=== PATIENT | male | born 1940 | race Caucasian/White ===

== ENCOUNTER 2019-01-26 08:04 | Observation (INO) ==
--- NOTE | 2019-01-26 12:35 | Internal Med History&Physical ---
Date of Encounter: 01/26/19 Time of Encounter: 12:35 Internal Medicine - H&P: HPI History of present illness: Mr. Ocampo is a 78 year old male with history of COPD on 3L O2 at home, CAD, CVA, atrial fibrillation, PE on Xarelto, liver disease, Pacer/AICD presents as a transfer from [place] ED for shortness of breath and elevated troponin. Patient was watching TV at 9 pm last night during onset of symptoms. He felt anxiety mostly during this time. Dyspnea worsens with exertion. He denies chest pain, n/v, diaphoresis, palpitations. En route to [place] he was given Solu-Medrol and Duo Nebs. In ED he was found to have troponin 0.04, creatinine slightly above baseline at 1.5, BNP 292. EKG showed a paced rhythm with no t- wave abnormalities or ST elevations or depressions. He was given 0.5 mg IV Ativan which was reported to improve his symptoms. Past Med Surg Social Fam HX - Past Medical History Medical history: arthritis, atrial fibrillation, CHF, COPD, coronary artery disease, CVA, GERD, hyperlipidemia, hypertension, liver disease Additional medical history: Stroke-April 2018 Psychiatric history: no psych history - Past Surgical History Surgical History: orthopedic, other, pacemaker/AICD Additional surgical history: Left Arm Surgery, Right Thumb Surgery - Social History Smoking Status: Former smoker Smokeless Tobacco Status: No Alcohol use: none Drug use: none - Family History Mother Living Status: Hx Family Cancer: Yes Brother Living Status: Internal Medicine - H&P: Meds Atorvastatin [Lipitor] 40 mg PO HS 10/25/16 [History] Ipratropium/Albuterol Neb [Duoneb] 3 ml IH Q6HR PRN 10/25/16 [History] Potassium Chloride [Klor-Con Sprinkle] 20 meq PO DAILY 10/25/16 [History] Esomeprazole Magnesium [Nexium] 40 mg PO DAILY 01/09/17 [History] Lisinopril [Zestril] 10 mg PO DAILY 01/09/17 [History] Metoprolol XL (24 HR) Succ [Toprol Xl] 50 mg PO DAILY 01/09/17 [History] Montelukast [Singulair] 10 mg PO HS 06/12/18 [History] Buspirone HCl [Buspar] 5 mg PO BID 01/26/19 [History] Furosemide [Lasix] 40 mg PO DAILY 01/26/19 [History] Guaifenesin [Mucinex] 600 mg PO DAILY PRN 01/26/19 [History] Mirtazapine [Remeron] 15 mg PO HS 01/26/19 [History] Rivaroxaban [Xarelto] 20 mg PO DAILY 01/26/19 [History] Sennosides [Senna] 8.6 mg PO HS 01/26/19 [History] hydrOXYzine HCl [Hydroxyzine HCl] 25 mg PO QID PRN 01/26/19 [History] Allergy/AdvReac Type Severity Reaction Status Date / Time cephalexin [From Keflex] Allergy Difficulty Verified 01/26/19 04:57 Breathing All Systems PM: A 10-system review of systems was performed and is negative for pertinent findings except as documented above in the HPI. - Constitutional Vitals: Temp Pulse Resp BP Pulse Ox 97.8 F 69 18 102/64 98 01/26/19 12:31 01/26/19 12:31 01/26/19 12:31 01/26/19 12:31 01/26/19 12:31 General appearance: Present: A&O X 3, no acute distress Exam: . - Head Head exam: Present: atraumatic, normocephalic - Eye Eye exam: Present: PERRL, conjuntiva pink, sclera anicteric Pupils: Present: PERRL - Neck Neck exam general surgery: Present: supple, trachea midline. Absent: lymphadenopathy - Respiratory Respiratory exam: Present: decreased breath sounds. Absent: accessory muscle use, rales, rhonchi, wheezes Additional comments: very poor air exchange with faint exchange. - Cardiovascular Cardiovascular exam: Present: RRR, +S1, +S2. Absent: diastolic murmur, gallop, rubs, systolic murmur - GI/Abdominal GI/Abdominal exam: Present: normal bowel sounds, soft, no peritoneal signs. Absent: distended, tenderness - Extremities Exam Extremities exam: Present: warm, radial pulses palpable and symmetrical. Absent: calf tenderness, cyanotic, pedal edema - Neurological Exam Neurological exam: Present: CN II-XII intact, oriented X3, no focal deficits. Absent: pronater drift, facial droop, speech deficit - Skin Skin exam: Present: dry, intact - Assessment and Plan (1) Elevated troponin Current Visit: No Status: Acute Assessment and plan: Could be secondary to demand ischemia from COPD exacerbation. Cycle troponin, echocardiogram, CT chest. (2) COPD exacerbation Current Visit: No Status: Chronic Assessment and plan: Likely to be triggered by change in weather as noted it could be related to this. Does not appear to be infectious but will monitor for signs of infection. Received Solu Medrol and Duo Nebs en route to [place] Continue Duo Nebs Solu Medrol CT chest (3) History of pulmonary embolism Current Visit: Yes Status: Acute Assessment and plan: Continue Xarelto. (4) Coronary artery disease Current Visit: Yes Status: Acute Assessment and plan: Resume home medications. Qualifiers: Coronary Disease-Associated Artery/Lesion type: [place] artery [place] vs. transplanted heart: [place] heart Associated angina: without angina Qualified Code(s): I25.10 - Atherosclerotic heart disease of [place] coronary artery without angina pectoris (5) History of CVA (cerebrovascular accident) Current Visit: Yes Status: Acute Assessment and plan: Resume home medications. (6) GERD (gastroesophageal reflux disease) Current Visit: Yes Status: Acute Qualifiers: Esophagitis presence: esophagitis presence not specified Qualified Code(s): K21.9 - Gastro-esophageal reflux disease without esophagitis (7) CHF (congestive heart failure) Current Visit: No Status: Chronic Assessment and plan: Resume home medications. Qualifiers: Heart failure type: unspecified Heart failure chronicity: acute on chronic Qualified Code(s): I50.9 - Heart failure, unspecified (8) Essential hypertension Current Visit: No Status: Chronic (9) Pacemaker Current Visit: No Status: Chronic - Time Spent With Patient Total time spent is greater than 50% in coordination of care (as documented) at patient's floor/unit and/or counseling patient:
[2019-01-26] MEDS ORDERED: Nitroglycerin 0.4 MG TAB.SUBL SL PRN (12:37)
[2019-01-26] MEDS ORDERED: Naloxone 0.4 MG/ML INJ IVP PRN (12:38)
[2019-01-26] MEDS: Ipratropium/Albuterol Neb 3 ML IH SCH ×3 (15:21→20:06)
[2019-01-26 15:30] LABS: Adenovirus Not Detected (Not Detect); Bordetella Pertussis Not Detected (Not Detect); Chlamydophila pneumoniae Not Detected (Not Detect); Coronavirus 229E Not Detected (Not Detect); Coronavirus HKU1 Not Detected (Not Detect); Coronavirus NL63 Not Detected (Not Detect); Coronavirus OC43 Not Detected (Not Detect); Human Metapneumovirus Not Detected (Not Detect); Human Rhinovirus/Enterovirus Not Detected (Not Detect); Influenza A Subtype 2009 H1 Not Detected (Not Detect); Influenza A Untypeable Not Detected (Not Detect); Influenza B Not Detected (Not Detect); Mycoplasma pneumoniae Not Detected (Not Detect); Parainfluenza Virus 1 Not Detected (Not Detect); Parainfluenza Virus 2 Not Detected (Not Detect); Parainfluenza Virus 3 Not Detected (Not Detect); Parainfluenza Virus 4 Not Detected (Not Detect); Respiratory Syncytial Virus Not Detected (Not Detect)
[2019-01-26] MEDS: MethylPREDNISolone 40 MG/ML VIAL IVP SCH (17:02)
[2019-01-26] MEDS: Doxycycline 100 MG in 0.9 % Sodium Chloride Mini Bag 100 ML IVPB SCH (17:02)
[2019-01-26] MEDS ORDERED: *HR* LORazepam 2 MG/ML VIAL IVP ONE (19:33)
[2019-01-27] MEDS: Sennosides 8.6 MG TABLET PO SCH ×2 (00:24→20:31)
[2019-01-27] MEDS: MethylPREDNISolone 40 MG/ML VIAL IVP SCH ×3 (00:24→16:09)
[2019-01-27] MEDS: *HR* Rivaroxaban 10 MG TABLET PO SCH ×2 (00:25→08:20)
[2019-01-27] MEDS ORDERED: *HR* Rivaroxaban 10 MG TABLET PO SCH (00:30)
[2019-01-27] MEDS: Ipratropium/Albuterol Neb 3 ML IH SCH ×5 (00:39→15:43)
[2019-01-27] MEDS: Doxycycline 100 MG in 0.9 % Sodium Chloride Mini Bag 100 ML IVPB SCH ×2 (05:07→17:06)
[2019-01-27 07:15] LABS: Hematocrit 33.8 % (37.5-50.1); Hemoglobin 10.3 g/dL (12.9-16.9); Lymphocytes # 0.1 K/mcL (0.6-4.6); Lymphocytes % 2.7 %; Mean Corpuscular HGB Conc 30.5 g/dL (31.6-35.5); Mean Corpuscular Hemoglobin 29.5 pg (28.0-33.3); Mean Corpuscular Volume 96.8 fL (83.0-100.0); Mean Platelet Volume 9.3 fL (9.4-12.4); Monocytes # 0.1 K/mcL (0.0-1.3); Neutrophils # 4.8 K/mcL (1.6-8.9); Platelet Count 125 K/mcL (140-400); Red Blood Count 3.49 M/mcL (4.19-5.50); Red Cell Distribution Width 14.6 % (11.5-14.5); Segmented Neutrophils % 94.3 %; White Blood Count 5.1 K/mcL (4.3-11.1)
[2019-01-27 07:57] LABS: BUN/Creatinine Ratio 21 (6-26); Blood Urea Nitrogen 28 mg/dL (8-23); Calcium 9.3 mg/dL (8.6-10.3); Carbon Dioxide 29 mEq/L (23-29); Chloride 104 mEq/L (98-107); Glucose 152 mg/dL (70-105); Osmolality,Calculated 298 (280-300); Potassium 4.7 mEq/L (3.5-5.1); Sodium 140 mEq/L (136-145); eGFR For African Americans > 60 (> 60); eGFR For Non-African Americans 52 (> 60)
[2019-01-27] MEDS: Metoprolol XL (24 HR) Succ 50 MG TAB.ER.24H PO SCH (08:20)
[2019-01-27] MEDS ORDERED: Ipratropium/Albuterol Neb 3 ML IH PRN (09:01)
[2019-01-27] MEDS ORDERED: hydrOXYzine pamoate 25 MG CAPSULE PO ONE (16:12)
[2019-01-27] MEDS ORDERED: hydrOXYzine pamoate 25 MG CAPSULE PO PRN (16:16)
--- NOTE | 2019-01-27 16:20 | Internal Med Progress Note ---
Hospitalist Progress Note - Encounter Date of Encounter: 01/27/19 Time of Encounter: 11:30 - Subjective Interval History: Mr Ocampo is complaining of increased tremulousness and agitation which initially reported as being anxious, complaining of bilateral hand tremors. He told his nurse in the past that benzodiazepine has not worked for him, and that his atarax is not working GEN: Denies fever, chills or malaise HEENT: Denies headache blurriness, or dysphagia RESP: Reports improved SOB or cough CV: Denies chest pain or palpitations GI: Denies Nausea, vomiting, diarrhea or constipation Reviewed current in hospital medications with modifications see orders Reviewed Routine labs - Exam Vitals: Temp Pulse Resp BP Pulse Ox 97.5 F L 70 16 110/68 98 01/27/19 16:13 01/27/19 16:13 01/27/19 16:13 01/27/19 16:13 01/27/19 16:13 Exam: GEN: NAD, somewhat cachectic looking, A&O x 3, Pleasant and conversant, daughter and son-in-law at his bedside HEENT: Right eye amblyopia noted, bilateral proptosis noted SKIN: [place] warm acyanotic not jaundice HEART: RRR, no murmurs LUNGS: Diminished mild wheeze and scattered crackles, overall non labored ABDOMEN; Soft, non tender or distended, BS x 4 normactive EXT: No LE edema, Pedal pulses 1+, radial pulses 2+ PSYCH: Mood and affect is appropriate - Assessment and Plan (1) COPD exacerbation Current Visit: No Status: Chronic Assessment and Plan: CT chest does reveal significant emphysema. Patient is complaining of tremulousness and agitation in the setting of high-dose steroid therapy and albuterol. Discussed with patient and his family does not benzodiazepine is noted ideal option for him. He stated Atarax is not working, was switched to Vistaril which is more lipophilic. Would also switch his albuterol to levalbuterol will de-escalate steroids from IV Solu-Medrol to prednisone orally starting tomorrow (2) Abnormal CT of the chest Current Visit: Yes Status: Acute Assessment and Plan: Patient will need if outpatient repeat CT scan chest in 6 months (3) Acute kidney injury (nontraumatic) Current Visit: Yes Status: Acute Assessment and Plan: Serum creatinine is 1.3. Today baseline not known, will hold Lasix and lisinopril and encourage oral intake (4) History of atrial fibrillation Current Visit: Yes Status: Acute Assessment and Plan: Metoprolol and Xarelto. Not evident on exam, history of Pacemaker Placement. Patient also appears an exam to have proptosis light and check a TSH (5) CHF (congestive heart failure) Current Visit: No Status: Chronic Assessment and Plan: Echo revealed 70% EF, patient is not volume overloaded. This is likely not CHF exacerbation [place] COPD. Is +0.6 L (6) Essential hypertension Current Visit: No Status: Chronic Assessment and Plan: Normotensive continue current management (7) Pacemaker Current Visit: No Status: Chronic Assessment and Plan: We will request interrogation pacemaker tomorrow (8) Elevated troponin Current Visit: No Status: Acute Assessment and Plan: Likely demand ischemia, denies any chest pain and diaphoretic, troponin is above the reference range mildly, echocardiogram was unremarkable (9) History of pulmonary embolism Current Visit: Yes Status: Acute Assessment and Plan: on Xarelto. (10) Coronary artery disease Current Visit: Yes Status: Acute Assessment and Plan: On beta anisha, atorvastatin (11) GERD (gastroesophageal reflux disease) Current Visit: Yes Status: Acute Assessment and Plan: Continue omeprazole DVT Prophylaxis: Already on xarelto - Time Spent with Patient Total time spent is greater than 50% in coordination of care (as documented) at patient's floor/unit and/or counseling patient: Internal Medicine: Result - Labs CBC & Chem 7: 01/27/19 06:22 01/27/19 06:22 Labs: Short CBC 01/27/19 Range/Units 06:22 WBC 5.1 (4.3-11.1) K/mcL Hgb 10.3 L (12.9-16.9) g/dL Hct 33.8 L (37.5-50.1) % Plt Count 125 L (140-400) K/mcL Neutrophils # 4.8 (1.6-8.9) K/mcL BMP 01/27/19 06:22 Sodium 140 Potassium 4.7 Chloride 104 Carbon Dioxide 29 BUN 28 H Creatinine 1.34 H Glucose 152 H Calcium 9.3 Consult Discharge Plan - Plan Referrals: Alison Huston, FIELD MECH[employer]IC [Primary Care Provider] - (5) CHF (congestive heart failure) Qualifiers: Heart failure type: unspecified Heart failure chronicity: acute on chronic Qualified Code(s): I50.9 - Heart failure, unspecified (10) Coronary artery disease Qualifiers: Coronary Disease-Associated Artery/Lesion type: [place] artery [place] vs. transplanted heart: [place] heart Associated angina: without angina Qualified Code(s): I25.10 - Atherosclerotic heart disease of [place] coronary artery without angina pectoris (11) GERD (gastroesophageal reflux disease) Qualifiers: Esophagitis presence: esophagitis presence not specified Qualified Code(s): K21.9 - Gastro-esophageal reflux disease without esophagitis
[2019-01-27] MEDS ORDERED: Mirtazapine 15 MG TABLET PO SCH (21:00)
[2019-01-27] MEDS: Levalbuterol Neb 1.25 MG/3 ML IH SCH (21:30)
[2019-01-27] MEDS: Ipratropium Neb 0.5 MG NEBULIZER IH SCH (21:30)
[2019-01-28 04:47] LABS: Hematocrit 33.4 % (37.5-50.1); Hemoglobin 10.3 g/dL (12.9-16.9); Immature Granulocytes % 1.5 % (0-4); Lymphocytes # 0.2 K/mcL (0.6-4.6); Lymphocytes % 2.7 %; Mean Corpuscular HGB Conc 30.8 g/dL (31.6-35.5); Mean Corpuscular Hemoglobin 28.9 pg (28.0-33.3); Mean Corpuscular Volume 93.6 fL (83.0-100.0); Mean Platelet Volume 8.9 fL (9.4-12.4); Monocytes # 0.3 K/mcL (0.0-1.3); Monocytes % 4.5 %; Neutrophils # 6.7 K/mcL (1.6-8.9); Platelet Count 131 K/mcL (140-400); Red Blood Count 3.57 M/mcL (4.19-5.50); Red Cell Distribution Width 14.4 % (11.5-14.5); Segmented Neutrophils % 91.3 %; White Blood Count 7.4 K/mcL (4.3-11.1)
[2019-01-28] MEDS: Ipratropium Neb 0.5 MG NEBULIZER IH SCH ×3 (04:47→15:25)
[2019-01-28] MEDS: Levalbuterol Neb 1.25 MG/3 ML IH SCH ×3 (04:47→15:25)
[2019-01-28 05:05] LABS: BUN/Creatinine Ratio 27 (6-26); Blood Urea Nitrogen 32 mg/dL (8-23); Calcium 9.3 mg/dL (8.6-10.3); Carbon Dioxide 29 mEq/L (23-29); Chloride 103 mEq/L (98-107); Glucose 113 mg/dL (70-105); Osmolality,Calculated 298 (280-300); Potassium 4.2 mEq/L (3.5-5.1); Sodium 140 mEq/L (136-145); eGFR For African Americans > 60 (> 60); eGFR For Non-African Americans 59 (> 60)
[2019-01-28] MEDS: Doxycycline 100 MG in 0.9 % Sodium Chloride Mini Bag 100 ML IVPB SCH (05:43)
[2019-01-28 07:24] VITALS: BP 129/78
[2019-01-28] MEDS: Metoprolol XL (24 HR) Succ 50 MG TAB.ER.24H PO SCH (07:58)
[2019-01-28] MEDS: *HR* Rivaroxaban 10 MG TABLET PO SCH (07:59)
[2019-01-28] MEDS ORDERED: NON-FORMULARY MEDICATION 1 EACH EACH (Pantoprazole Sodium 40 MG) PO SCH (09:00)
[2019-01-28] MEDS ORDERED: predniSONE 20 MG TABLET PO SCH (09:00)
--- NOTE | 2019-01-28 10:49 | Discharge Summary ---
- NOTES TO OUTPATIENT PROVIDER Notes to Outpatient Provider: Post hospital discharge for COPD exacerbation, abnormal CT of the chest with follow-up CT of the chest scan in 6 months. Proptosis noted on exam TSH is low range of normal, patient 78 years old would expect a TSH as such outpatient follow-up for possible hyperthyroidism Orders not resulted at time of discharge: Pending orders 01/26/19 12:35 EKG [ECG 12 lead ECG] [ECG] Stat 01/29/19 04:00 Complete Blood Count [HEME] AM 0400 Magnesium AM 0400 Date of Encounter: 01/28/19 Time of Encounter: 10:47 - Discharge Diagnosis (1) COPD exacerbation Priority: Primary Status: Chronic Assessment and Plan: Improved sent home on long prednisone taper over 2 weeks, nebulizer budesonide, Xopenex and ipratropium CT chest does reveal significant emphysema. Patient is complaining of tremulousness and agitation in the setting of high-dose steroid therapy and albuterol. Discussed with patient and his family does not benzodiazepine is noted ideal option for him. He stated Atarax is not working, was switched to Vistaril which is more lipophilic. Would also switch his albuterol to levalbu terol will de-escalate steroids from IV Solu-Medrol to prednisone orally starting tomorrow (2) Abnormal CT of the chest Priority: Secondary Status: Acute Assessment and Plan: Patient will need if outpatient repeat CT scan chest in 6 months (3) Acute kidney injury (nontraumatic) Priority: Secondary Status: Acute Assessment and Plan: Serum creatinine is 1.3. Today baseline not known, will hold Lasix and lisinopril and encourage oral intake. Resolved; Scr 1.2 (4) History of atrial fibrillation Priority: Secondary Status: Acute Assessment and Plan: Metoprolol and Xarelto. Not evident on exam, history of Pacemaker Placement. Patient also appears an exam to have proptosis TSH 0.637 (5) CHF (congestive heart failure) Priority: Secondary Status: Chronic Assessment and Plan: Echo revealed 70% EF, patient is not volume overloaded. This is likely not CHF exacerbation [place] advance COPD. Is +0.6 L Qualifiers: Heart failure type: unspecified Heart failure chronicity: acute on chronic Qualified Code(s): I50.9 - Heart failure, unspecified (6) Essential hypertension Priority: Secondary Status: Chronic Assessment and Plan: Normotensive continue current management (7) Pacemaker Priority: Secondary Status: Chronic Assessment and Plan: may need interrogation pacemaker as out patient (8) Elevated troponin Priority: Secondary Status: Acute Assessment and Plan: Likely demand ischemia, denies any chest pain and diaphoretic, troponin is above the reference range mildly, echocardiogram was unremarkable (9) History of pulmonary embolism Priority: Secondary Status: Acute Assessment and Plan: on Xarelto. (10) Coronary artery disease Priority: Secondary Status: Acute Assessment and Plan: On beta anisha, atorvastatin Qualifiers: Coronary Disease-Associated Artery/Lesion type: [place] artery [place] vs. transplanted heart: [place] heart Associated angina: without angina Qualified Code(s): I25.10 - Atherosclerotic heart disease of [place] coronary artery without angina pectoris (11) GERD (gastroesophageal reflux disease) Priority: Secondary Status: Acute Assessment and Plan: Continue omeprazole Qualifiers: Esophagitis presence: esophagitis presence not specified Qualified Code(s): K21.9 - Gastro-esophageal reflux disease without esophagitis Hospital course: Mr. Ocampo is a 78 year old male was hospitalized for COPD exacerbation almost workup was a CT of the chest which revealed some abnormalities with concerns of malignancy is such a repeat CT of the chest is required in 6 months. Patient appears to have agitation and tremulousness from his beta adrenergic stimulation hence albuterol nebulizers been discontinued he has been switched to levalbuterol, budesonide nebulizer as well as a long prednisone taper. He stated that he has a home health aide that comes once a week but he is able to perform his ADLs and medications without any difficulties Discharge discussed with: patient, family, nurse - Time Spent with Patient Total time spent providing and/or coordinating discharge services:40 mins Specific discharge activities: Please use your nebulizer treatment as discussed and make sure to follow-up with her primary care physician within 7 days - Discharge Medications Prescriptions: New Atorvastatin [Lipitor] 40 mg PO HS #30 tablet predniSONE [PredniSONE] See Taper PO DAILY 20 Days #30 tablet Budesonide Neb [Pulmicort Neb] 0.5 mg IH BIDR #60 ampul.neb hydrOXYzine pamoate [Vistaril] 25 mg PO TID PRN 14 Days #30 capsule PRN Reason: Tremulousness, agitation Levalbuterol Neb [Xopenex Neb] 1.25 mg IH [id number] #60 vial.neb Continued Metoprolol XL (24 HR) Succ [Toprol Xl] 50 mg PO DAILY Pantoprazole Sodium 40 mg PO DAILY Umeclidinium [place] [Incruse Ellipta] 1 puff PO DAILY Budesonide/Formoterol 160/4.5 [Symbicort 160/4.5] 2 puff IH BID Albuterol Sulfate [Ventolin Hfa] 2 puff IH Q6H PRN PRN Reason: Shortness Of Breath Buspirone HCl [Buspar] 5 mg PO BID #60 tablet Lisinopril [Zestril] 10 mg PO DAILY #30 tablet Montelukast [Singulair] 10 mg PO HS Mirtazapine [Remeron] 15 mg PO HS Sennosides [Senna] 8.6 mg PO HS Rivaroxaban [Xarelto] 20 mg PO DAILY Discontinued Atorvastatin [Lipitor] 40 mg PO HS Ipratropium/Albuterol Neb [Duoneb] 3 ml IH Q6HR PRN PRN Reason: Wheezing hydrOXYzine HCl [Hydroxyzine HCl] 25 mg PO QID PRN PRN Reason: Anxiety Guaifenesin [Mucinex] 600 mg PO BID PRN PRN Reason: Congestion No Action Furosemide [Lasix] 40 mg PO DAILY Potassium Chloride [K-Tab ER] 20 meq PO DAILY Home Medications: Metoprolol XL (24 HR) Succ [Toprol Xl] 50 mg PO DAILY 01/09/17 [History] Montelukast [Singulair] 10 mg PO HS 06/12/18 [History] Mirtazapine [Remeron] 15 mg PO HS 01/26/19 [History] Rivaroxaban [Xarelto] 20 mg PO DAILY 01/26/19 [History] Sennosides [Senna] 8.6 mg PO HS 01/26/19 [History] Albuterol Sulfate [Ventolin Hfa] 2 puff IH Q6H PRN 01/27/19 [History] Budesonide/Formoterol 160/4.5 [Symbicort 160/4.5] 2 puff IH BID 01/27/19 [History] Furosemide [Lasix] 40 mg PO DAILY 01/27/19 [History] Pantoprazole Sodium 40 mg PO DAILY 01/27/19 [History] Potassium Chloride [K-Tab ER] 20 meq PO DAILY 01/27/19 [History] Umeclidinium [place] [Incruse Ellipta] 1 puff PO DAILY 01/27/19 [History] Atorvastatin [Lipitor] 40 mg PO HS #30 tablet 01/28/19 [Rx] Budesonide Neb [Pulmicort Neb] 0.5 mg IH BIDR #60 ampul.neb 01/28/19 [Rx] Buspirone HCl [Buspar] 5 mg PO BID #60 tablet 01/28/19 [Rx] Levalbuterol Neb [Xopenex Neb] 1.25 mg IH [id number] #60 vial.neb 01/28/19 [Rx] Lisinopril [Zestril] 10 mg PO DAILY #30 tablet 01/28/19 [Rx] hydrOXYzine pamoate [Vistaril] 25 mg PO TID PRN 14 Days #30 capsule 01/28/19 [Rx] predniSONE [PredniSONE] See Taper PO DAILY 20 Days #30 tablet 01/28/19 [Rx] Allergies/Adverse Reactions: Allergy/AdvReac Type Severity Reaction Status Date / Time cephalexin [From Keflex] Allergy Difficulty Verified 01/26/19 04:57 Breathing Date of admission: 01/26/19 11:38 Primary care physician: Alison Huston [employer] Discharging clinician: Alexsandra Cabrera - Constitutional Vitals: Temp Pulse Resp BP Pulse Ox 97.8 F 69 32 129/78 94 01/28/19 07:23 01/28/19 07:23 01/28/19 09:26 01/28/19 07:23 01/28/19 09:26 General appearance: Present: A&O X 3, no acute distress Exam: GENERAL: NAD, A&O x3, pleasant and conversant SKIN: No skin lesions or rashes, non-jaundiced EYES: EOMI, PERRLA, no sclera icterus, right eye amblyopia and bilateral proptosis noted HENT: Head atraumatic, no facial asymmetry, frontal and maxillary sinus non- tender, normal hearing, oropharynx and mucosa moist and without any exudates NECK: No cervical lymphadenopathy, trachea midline LUNGS: Diminished but appears clear to auscultation, no wheeze, or rhonchi, but few scattered crackles. Non labored respirations HEART: Normal rate and rhythm, no murmurs or rubs ABDOMEN: soft, non-tender, non-distended, bowel sounds x 4 normoactive EXTRMITIES: No LE asymmetry, No LE edema, pedal pulses 1+ and radial pulses 2 + and equal bilaterally NEURO: Speech and comprehension appears intact. PSYCH: Cooperative, non- anxious or irritable, mood and affect is appropriate - Patient Status Disposition: Home, Self-Care Condition: Fair - Discharge Instructions Follow Up With: Alison Huston CNP [Primary Care Provider] - - Diet and Activity Activity: resume usual activities as tolerated Diet: low fat, low cholesterol, low salt diet
== END 2019-01-28 15:44 | disposition home or self-care (01) ==
LOC: 3BNU
PROVIDERS: ADMIT Student in an Organized Health Care Education/Training Program; ATTEND Student in an Organized Health Care Education/Training Program

== ENCOUNTER 2019-06-04 19:33 | Inpatient (IN) ==
[2019-06-05 03:41] LABS: Hematocrit 29.3 % (37.5-50.1); Hemoglobin 8.5 g/dL (12.9-16.9); Mean Corpuscular Hemoglobin 24.1 pg (28.0-33.3); Mean Corpuscular Volume 83.2 fL (83.0-100.0); Mean Platelet Volume 8.5 fL (9.4-12.4); Platelet Count 211 K/mcL (140-400); Red Blood Count 3.52 M/mcL (4.19-5.50); Red Cell Distribution Width 16.9 % (11.5-14.5); White Blood Count 8.4 K/mcL (4.3-11.1)
[2019-06-05 04:02] LABS: Alanine Aminotransferase 16 Units/L (7-52); Albumin 3.3 g/dL (3.5-5.7); Albumin/Globulin Ratio 1.1 (1.1-2.2); Alkaline Phosphatase 62 Units/L (34-104); Aspartate Amino Transferase 15 Units/L (13-39); BUN/Creatinine Ratio 20 (6-26); Bilirubin,Total 0.4 mg/dL (0.3-1.0); Blood Urea Nitrogen 25 mg/dL (8-23); Calcium 8.8 mg/dL (8.6-10.3); Carbon Dioxide 29 mEq/L (23-29); Chloride 107 mEq/L (98-107); Globulin 2.9 g/dL (2.4-3.5); Glucose 77 mg/dL (70-105); Osmolality,Calculated 299 (280-300); Potassium 4.5 mEq/L (3.5-5.1); Sodium 143 mEq/L (136-145); Total Protein 6.2 g/dL (6.4-8.9); eGFR For African Americans > 60 (> 60); eGFR For Non-African Americans 54 (> 60)
[2019-06-05] MEDS ORDERED: Naloxone 0.4 MG/ML INJ IVP PRN (04:23)
[2019-06-05 04:35] LABS: Troponin I 0.08 ng/mL (< 0.04)
[2019-06-05] MEDS ORDERED: Dextrose Gel 15 GM/37.5 ML TUBE PO PRN ×2 (08:10)
[2019-06-05] MEDS ORDERED: D5% in Water 1,000 ML IVC PRN (08:10)
[2019-06-05] MEDS ORDERED: *HR* Dextrose 50 % in Water (Syg) 50 ML SYRINGE IVP PRN (08:10)
[2019-06-05] MEDS: Pantoprazole 40 MG VIAL IVP SCH ×2 (08:51→17:42)
[2019-06-05] MEDS: Metoprolol XL (24 HR) Succ 50 MG TAB.ER.24H PO SCH (08:51)
[2019-06-05] MEDS: Budesonide/Formoterol 160/4.5 1 PUFF INH IH SCH ×2 (10:59→21:32)
[2019-06-05] MEDS: Levalbuterol Neb 1.25 MG/3 ML IH SCH ×3 (10:59→21:32)
[2019-06-05] MEDS: Insulin LISPRO 300 UNITS/3 ML VIAL SQ SCH ×2 (12:08→17:40)
[2019-06-05 13:33] LABS: Hematocrit 31.7 % (37.5-50.1); Hemoglobin 9.2 g/dL (12.9-16.9)
[2019-06-05] MEDS ORDERED: Perflutren Lipid Microsphere 1.3 ML in 0.9 % Sodium Chloride 8.7 ML IVP ONE (13:47)
[2019-06-05] MEDS ORDERED: Perflutren Lipid Microsphere 2 ML VIAL ONE (13:50)
[2019-06-05] MEDS ORDERED: Heparin 25,000 UNIT/250 ML D5W 25,000 UNIT/250 ML IV.SOLN IVC SCH (17:15)
[2019-06-05] MEDS ORDERED: *HR* Heparin 5,000 UNIT/ML VIAL IVP PRN ×2 (18:48)
[2019-06-05] MEDS: hydrOXYzine pamoate 25 MG CAPSULE PO PRN (20:01)
[2019-06-05] MEDS: Mirtazapine 15 MG TABLET PO SCH (20:04)
[2019-06-06 00:42] LABS: Basophils % 0.2 %; Eosinophils # 0.1 K/mcL (0.0-0.6); Eosinophils % 1.2 %; Hematocrit 27.5 % (37.5-50.1); Hemoglobin 8.2 g/dL (12.9-16.9); Immature Granulocytes % 0.8 % (0-4); Lymphocytes # 0.4 K/mcL (0.6-4.6); Lymphocytes % 6.9 %; Mean Corpuscular HGB Conc 29.8 g/dL (31.6-35.5); Mean Corpuscular Volume 80.6 fL (83.0-100.0); Mean Platelet Volume 8.2 fL (9.4-12.4); Monocytes # 0.3 K/mcL (0.0-1.3); Monocytes % 5.1 %; Neutrophils # 5.2 K/mcL (1.6-8.9); Platelet Count 184 K/mcL (140-400); Red Blood Count 3.41 M/mcL (4.19-5.50); Segmented Neutrophils % 85.8 %; White Blood Count 6.1 K/mcL (4.3-11.1)
[2019-06-06 00:44] LABS: Heparin anti-factor XA UFH 0.54 IU/mL (0.30-0.70); INR 1.2
[2019-06-06 00:46] LABS: Calcium 8.3 mg/dL (8.6-10.3); Magnesium 1.9 mg/dL (1.6-2.6); Phosphorous 3.3 mg/dL (2.7-4.5)
[2019-06-06] MEDS: Insulin LISPRO 300 UNITS/3 ML VIAL SQ SCH ×5 (02:25→23:17)
[2019-06-06] MEDS: Levalbuterol Neb 1.25 MG/3 ML IH SCH ×4 (04:10→22:16)
[2019-06-06] MEDS: Pantoprazole 40 MG VIAL IVP SCH ×2 (06:22→18:17)
[2019-06-06] MEDS ORDERED: Ringers Solution, Lactated 1,000 ML IVC SCH (07:45)
[2019-06-06 07:56] LABS: Hematocrit 26.4 % (37.5-50.1); Hemoglobin 8.1 g/dL (12.9-16.9)
[2019-06-06 08:06] LABS: Heparin anti-factor XA UFH 0.77 IU/mL (0.30-0.70)
[2019-06-06] MEDS ORDERED: Heparin 25,000 UNIT/250 ML D5W 25,000 UNIT/250 ML IV.SOLN IVC SCH (08:38)
[2019-06-06 08:52] LABS: Activated Partial Thrombo Time 98.3 Seconds (26.0-36.0)
[2019-06-06] MEDS: Metoprolol XL (24 HR) Succ 50 MG TAB.ER.24H PO SCH (10:27)
[2019-06-06] MEDS: predniSONE 20 MG TABLET PO SCH (10:28)
[2019-06-06] MEDS: Budesonide/Formoterol 160/4.5 1 PUFF INH IH SCH (10:34)
[2019-06-06] MEDS: hydrOXYzine pamoate 25 MG CAPSULE PO PRN (10:56)
[2019-06-06 13:38] LABS: Hematocrit 26.6 % (37.5-50.1)
[2019-06-06] MEDS ORDERED: hydrOXYzine pamoate 25 MG CAPSULE PO PRN (16:54)
[2019-06-06] MEDS ORDERED: SODIUM CHLORIDE/NAHCO3/KCL/PEG 4,000 ML SOLN.RECON PO ONE (17:00)
[2019-06-06 20:29] LABS: Hematocrit 30.2 % (37.5-50.1); Hemoglobin 9.1 g/dL (12.9-16.9)
[2019-06-06] MEDS ORDERED: Sennosides 8.6 MG TABLET PO SCH (21:00)
[2019-06-06] MEDS: Mirtazapine 15 MG TABLET PO SCH (21:01)
[2019-06-06] MEDS: Nystatin Ointment 15 GM TUBE TP SCH (21:07)
[2019-06-07] MEDS: Insulin LISPRO 300 UNITS/3 ML VIAL SQ SCH ×2 (04:03→14:01)
[2019-06-07] MEDS: Levalbuterol Neb 1.25 MG/3 ML IH SCH ×3 (04:24→15:04)
[2019-06-07] MEDS: Pantoprazole 40 MG VIAL IVP SCH (04:46)
[2019-06-07 05:23] LABS: Immature Granulocytes % 0.7 % (0-4); Segmented Neutrophils % 86.9 %
[2019-06-07 05:25] LABS: Eosinophils # 0.1 K/mcL (0.0-0.6); Hematocrit 29.8 % (37.5-50.1); Hemoglobin 8.9 g/dL (12.9-16.9); Lymphocytes # 0.4 K/mcL (0.6-4.6); Lymphocytes % 6.2 %; Mean Corpuscular HGB Conc 29.9 g/dL (31.6-35.5); Mean Corpuscular Hemoglobin 24.2 pg (28.0-33.3); Mean Platelet Volume 9.7 fL (9.4-12.4); Monocytes # 0.3 K/mcL (0.0-1.3); Monocytes % 5.2 %; Platelet Count 209 K/mcL (140-400); Red Blood Count 3.68 M/mcL (4.19-5.50); White Blood Count 5.8 K/mcL (4.3-11.1)
[2019-06-07 05:44] LABS: BUN/Creatinine Ratio 15 (6-26); Blood Urea Nitrogen 18 mg/dL (8-23); Calcium 8.8 mg/dL (8.6-10.3); Carbon Dioxide 26 mEq/L (23-29); Chloride 101 mEq/L (98-107); Glucose 76 mg/dL (70-105); Magnesium 2.1 mg/dL (1.6-2.6); Osmolality,Calculated 287 (280-300); Phosphorous 3.6 mg/dL (2.7-4.5); Potassium 3.3 mEq/L (3.5-5.1); Sodium 138 mEq/L (136-145); eGFR For African Americans > 60 (> 60); eGFR For Non-African Americans 59 (> 60)
[2019-06-07] MEDS: Nystatin Ointment 15 GM TUBE TP SCH (08:40)
[2019-06-07] MEDS: predniSONE 20 MG TABLET PO SCH (08:41)
[2019-06-07] MEDS: Metoprolol XL (24 HR) Succ 50 MG TAB.ER.24H PO SCH (08:51)
[2019-06-07] MEDS ORDERED: (Fluticasone/Umeclidin/Vilanter [Trelegy Ellipta 100-62.5-25) IH SCH (10:00)
[2019-06-07] MEDS ORDERED: Lidocaine -MPF 2% 2 ML VIAL ONE (12:42)
[2019-06-07] MEDS ORDERED: Propofol 500 MG/50 ML INFUS..BTL ONE (12:43)
[2019-06-07 14:13] VITALS: BP 137/91
[2019-06-07] MEDS ORDERED: *HR* Rivaroxaban 10 MG TABLET PO SCH (14:15)
[2019-06-08] MEDS ORDERED: Tiotropium 18 MCG inhalation IH SCH (07:00)
== END 2019-06-07 16:00 | disposition home health service (06) | DRG 378 ==
LOC: 3ANU → SUATTDRO 21:55
PROVIDERS: ADMIT Internal Medicine; ATTEND Internal Medicine
PROC: ENDOEBX (2019-06-07 08:45)

== ENCOUNTER 2020-04-14 14:18 | Inpatient (IN) ==
[2020-04-14] MEDS ORDERED: Ipratropium/Albuterol Neb 3 ML IH ONE (18:07)
[2020-04-14] MEDS ORDERED: methylPREDNISolone 125 MG/2 ML VIAL IVP ONE (18:10)
[2020-04-14] MEDS ORDERED: Ipratropium/Albuterol Neb 3 ML ONE (18:18)
[2020-04-14] MEDS ORDERED: *HR* LORazepam 2 MG/ML VIAL IVP ONE (18:21)
[2020-04-14] MEDS ORDERED: methylPREDNISolone 125 MG/2 ML VIAL ONE (18:23)
[2020-04-14] MEDS ORDERED: *HR* LORazepam 2 MG/ML VIAL ONE (18:23)
[2020-04-14 18:28] LABS: ABG Base Excess 0 mEq/L (-2 to 3); ABG HCO3 25 mEq/L (21-27); ABG Oxygen Saturation 97 % (95-98); ABG PCO2 38 mmHg (35-45); ABG PH 7.42 pH Units (7.32-7.45); ABG PO2 87 mmHg (85-104); ABG TCO2 26 mEq/L (20-26)
[2020-04-14 18:29] LABS: Adenovirus Not Detected (Not Detect); Bordetella Pertussis Not Detected (Not Detect); Chlamydophila pneumoniae Not Detected (Not Detect); Coronavirus 229E Not Detected (Not Detect); Coronavirus HKU1 Not Detected (Not Detect); Coronavirus NL63 Not Detected (Not Detect); Coronavirus OC43 Not Detected (Not Detect); Human Metapneumovirus Not Detected (Not Detect); Human Rhinovirus/Enterovirus Not Detected (Not Detect); Influenza A Subtype 2009 H1 Not Detected (Not Detect); Influenza B Not Detected (Not Detect); Mycoplasma pneumoniae Not Detected (Not Detect); Parainfluenza Virus 1 Not Detected (Not Detect); Parainfluenza Virus 2 Not Detected (Not Detect); Parainfluenza Virus 3 Not Detected (Not Detect); Parainfluenza Virus 4 Not Detected (Not Detect); Respiratory Syncytial Virus Not Detected (Not Detect); SARS-CoV-2 Not Detected (Not Detect)
[2020-04-14] MEDS: Azithromycin 500 MG in 0.9 % Sodium Chloride 250 ML IVPB SCH (21:49)
[2020-04-14] MEDS ORDERED: Ipratropium/Albuterol Neb 3 ML IH SCH (23:00)
[2020-04-14] MEDS: MethylPREDNISolone 40 MG/ML VIAL IVP SCH (23:52)
[2020-04-15] MEDS: Pantoprazole 40 MG VIAL IVP SCH ×3 (00:29→18:27)
[2020-04-15] MEDS ORDERED: 0.9 % Sodium Chloride 250 ML ONE (00:43)
[2020-04-15] MEDS ORDERED: Levalbuterol Neb 1.25 MG/3 ML IH PRN (01:50)
[2020-04-15] MEDS ORDERED: Perflutren Lipid Microsphere 1.3 ML in 0.9 % Sodium Chloride 8.7 ML IVP PRN (04:36)
[2020-04-15] MEDS: MethylPREDNISolone 40 MG/ML VIAL IVP SCH ×2 (05:03→18:27)
[2020-04-15 06:13] LABS: Hematocrit 25.8 % (37.5-50.1); Hemoglobin 7.6 g/dL (12.9-16.9); Immature Granulocytes % 1.1 % (0-4); Lymphocytes # 0.2 K/mcL (0.6-4.6); Lymphocytes % 3.6 %; Mean Corpuscular HGB Conc 29.5 g/dL (31.6-35.5); Mean Corpuscular Hemoglobin 24.4 pg (28.0-33.3); Mean Platelet Volume 9.2 fL (9.4-12.4); Monocytes % 0.6 %; Platelet Count 150 K/mcL (140-400); Red Blood Count 3.11 M/mcL (4.19-5.50); Red Cell Distribution Width 17.5 % (11.5-14.5); Segmented Neutrophils % 94.7 %; White Blood Count 5.2 K/mcL (4.3-11.1)
[2020-04-15 06:22] LABS: Neutrophils # 4.9 K/mcL (1.6-8.9)
[2020-04-15 06:35] LABS: Alanine Aminotransferase 9 Units/L (7-52); Albumin/Globulin Ratio 1.5 (1.1-2.2); Alkaline Phosphatase 57 Units/L (34-104); Aspartate Amino Transferase 12 Units/L (13-39); BUN/Creatinine Ratio 18 (6-26); Bilirubin,Total 0.5 mg/dL (0.3-1.0); Blood Urea Nitrogen 22 mg/dL (8-23); Calcium 9.4 mg/dL (8.6-10.3); Carbon Dioxide 25 mEq/L (23-29); Chloride 107 mEq/L (98-107); Globulin 2.7 g/dL (2.4-3.5); Glucose 126 mg/dL (70-105); Osmolality,Calculated 299 (280-300); Potassium 4.7 mEq/L (3.5-5.1); Sodium 142 mEq/L (136-145); Total Protein 6.7 g/dL (6.4-8.9); eGFR For African Americans > 60 (> 60); eGFR For Non-African Americans 58 (> 60)
[2020-04-15 06:37] LABS: % Iron Saturation 5 % (20-55); Iron 21 mcg/dL (65-175); Transferrin 307 mg/dL (203-362)
[2020-04-15 06:49] LABS: Ferritin 24 ng/mL (20-250)
[2020-04-15 06:53] LABS: Anisocytosis 1+ (Not Present); Hypochromasia Present (Not Present); Ovalocytes 1+ (Not Present)
[2020-04-15 06:54] LABS: Platelet Estimate Normal (Normal)
[2020-04-15 06:55] LABS: Folate 7.6 ng/mL (3.0-16.0)
[2020-04-15] MEDS: amLODIPine 5 MG TABLET PO SCH (08:48)
[2020-04-15] MEDS: Furosemide 40 MG TABLET PO SCH (08:49)
[2020-04-15] MEDS: lisinopriL 10 MG TABLET PO SCH (08:49)
[2020-04-15] MEDS: Metoprolol XL (24 HR) Succ 50 MG TAB.ER.24H PO SCH (08:49)
[2020-04-15 10:00] LABS: INR 1.6; Prothrombin Time 18.1 Seconds (9.4-12.1)
[2020-04-15] MEDS: Ipratropium/Albuterol Neb 3 ML IH SCH ×4 (11:30→23:52)
[2020-04-15] MEDS: Budesonide/Formoterol 160/4.5 1 PUFF INH IH SCH ×2 (11:33→19:58)
[2020-04-15 13:13] LABS: Bilirubin,Urine Negative (Negative); Blood,Urine Negative (Negative); Clarity,Urine Clear (Clear); Color,Urine Colorless (Yellow); Glucose,Urine (UA) Normal (Normal); Ketones,Urine Negative (Negative); Leukocyte Esterase,Urine Negative (Negative); Nitrite,Urine Negative (Negative); Protein,Urine Negative (Neg-Trace); Specific Gravity,Urine 1.007 (1.010-1.025); Urobilinogen,Urine Normal (Normal)
[2020-04-15 14:48] LABS: Hematocrit 25.6 % (37.5-50.1); Hemoglobin 7.6 g/dL (12.9-16.9)
[2020-04-15] MEDS: Mirtazapine 15 MG TABLET PO SCH (20:20)
[2020-04-15] MEDS: Azithromycin 500 MG in 0.9 % Sodium Chloride 250 ML IVPB SCH (20:21)
[2020-04-15] MEDS: hydrOXYzine pamoate 25 MG CAPSULE PO PRN (23:07)
[2020-04-16] MEDS ORDERED: *HR* LORazepam 2 MG/ML VIAL IVP ONE (03:17)
[2020-04-16] MEDS: Ipratropium/Albuterol Neb 3 ML IH SCH ×6 (03:39→23:17)
[2020-04-16] MEDS: Pantoprazole 40 MG VIAL IVP SCH (05:30)
[2020-04-16] MEDS: MethylPREDNISolone 40 MG/ML VIAL IVP SCH ×2 (05:30→18:55)
[2020-04-16 06:13] LABS: Hematocrit 25.9 % (37.5-50.1); Hemoglobin 7.6 g/dL (12.9-16.9); Immature Granulocytes % 0.7 % (0-4); Lymphocytes # 0.2 K/mcL (0.6-4.6); Lymphocytes % 2.7 %; Mean Corpuscular HGB Conc 29.3 g/dL (31.6-35.5); Mean Corpuscular Volume 81.7 fL (83.0-100.0); Mean Platelet Volume 9.5 fL (9.4-12.4); Monocytes # 0.2 K/mcL (0.0-1.3); Monocytes % 2.7 %; Platelet Count 143 K/mcL (140-400); Red Blood Count 3.17 M/mcL (4.19-5.50); Red Cell Distribution Width 18.1 % (11.5-14.5); Segmented Neutrophils % 93.9 %; White Blood Count 5.5 K/mcL (4.3-11.1)
[2020-04-16 06:15] LABS: Neutrophils # 5.2 K/mcL (1.6-8.9)
[2020-04-16 06:19] LABS: INR 1.3; Prothrombin Time 14.6 Seconds (9.4-12.1)
[2020-04-16 06:39] LABS: BUN/Creatinine Ratio 27 (6-26); Blood Urea Nitrogen 34 mg/dL (8-23); Calcium 9.1 mg/dL (8.6-10.3); Carbon Dioxide 24 mEq/L (23-29); Chloride 106 mEq/L (98-107); Glucose 103 mg/dL (70-105); Magnesium 2.4 mg/dL (1.6-2.6); Osmolality,Calculated 296 (280-300); Potassium 4.2 mEq/L (3.5-5.1); Sodium 139 mEq/L (136-145); eGFR For African Americans > 60 (> 60); eGFR For Non-African Americans 55 (> 60)
[2020-04-16] MEDS: Budesonide/Formoterol 160/4.5 1 PUFF INH IH SCH ×2 (07:27→19:50)
[2020-04-16] MEDS: Metoprolol XL (24 HR) Succ 50 MG TAB.ER.24H PO SCH (08:57)
[2020-04-16] MEDS: lisinopriL 10 MG TABLET PO SCH (08:57)
[2020-04-16] MEDS: Furosemide 40 MG TABLET PO SCH (08:57)
[2020-04-16] MEDS: amLODIPine 5 MG TABLET PO SCH (08:57)
[2020-04-16] MEDS: Pantoprazole 40 MG in 0.9 % Sodium Chloride Mini Bag 100 ML IVC SCH ×3 (12:22→23:47)
[2020-04-16 15:51] LABS: Thyroid Stimulating Hormone 0.503 mcIU/mL (0.340-5.600)
[2020-04-16] MEDS: Mirtazapine 15 MG TABLET PO SCH (20:39)
[2020-04-16] MEDS: hydrOXYzine pamoate 25 MG CAPSULE PO PRN (20:39)
[2020-04-16] MEDS: Azithromycin 500 MG in 0.9 % Sodium Chloride 250 ML IVPB SCH (20:39)
[2020-04-17] MEDS: Ipratropium/Albuterol Neb 3 ML IH SCH ×6 (03:44→23:45)
[2020-04-17] MEDS: Pantoprazole 40 MG in 0.9 % Sodium Chloride Mini Bag 100 ML IVC SCH ×4 (04:48→15:38)
[2020-04-17] MEDS: MethylPREDNISolone 40 MG/ML VIAL IVP SCH (04:49)
[2020-04-17] MEDS: Budesonide/Formoterol 160/4.5 1 PUFF INH IH SCH ×2 (07:25→20:45)
[2020-04-17] MEDS: Furosemide 40 MG TABLET PO SCH (09:05)
[2020-04-17] MEDS: amLODIPine 5 MG TABLET PO SCH (09:05)
[2020-04-17] MEDS: lisinopriL 10 MG TABLET PO SCH (09:06)
[2020-04-17] MEDS: Metoprolol XL (24 HR) Succ 50 MG TAB.ER.24H PO SCH (09:06)
[2020-04-17 10:00] LABS: Calcium 8.9 mg/dL (8.6-10.3); Magnesium 2.3 mg/dL (1.6-2.6); Potassium 4.3 mEq/L (3.5-5.1)
[2020-04-17 10:02] LABS: INR 1.2; Prothrombin Time 14.3 Seconds (9.4-12.1)
[2020-04-17 10:05] LABS: Chol/HDL Ratio 2.1 (0-4.9)
[2020-04-17 10:11] LABS: Hematocrit 26.2 % (37.5-50.1); Hemoglobin 7.7 g/dL (12.9-16.9); Immature Granulocytes % 0.6 % (0-4); Lymphocytes # 0.1 K/mcL (0.6-4.6); Lymphocytes % 2.3 %; Mean Corpuscular HGB Conc 29.4 g/dL (31.6-35.5); Mean Corpuscular Hemoglobin 23.8 pg (28.0-33.3); Mean Corpuscular Volume 81.1 fL (83.0-100.0); Mean Platelet Volume 9.7 fL (9.4-12.4); Monocytes # 0.1 K/mcL (0.0-1.3); Monocytes % 1.5 %; Neutrophils # 4.5 K/mcL (1.6-8.9); Platelet Count 149 K/mcL (140-400); Red Blood Count 3.23 M/mcL (4.19-5.50); Red Cell Distribution Width 18.4 % (11.5-14.5); Segmented Neutrophils % 95.6 %; White Blood Count 4.7 K/mcL (4.3-11.1)
[2020-04-17 10:44] LABS: Anisocytosis 1+ (Not Present); Platelet Estimate Normal (Normal)
[2020-04-17 10:59] LABS: Estimated Average Glucose 114 mg/dl
[2020-04-17] MEDS ORDERED: 0.9 % Sodium Chloride 500 ML IVC SCH (12:15)
[2020-04-17] MEDS: Mirtazapine 15 MG TABLET PO SCH (22:38)
[2020-04-17] MEDS: Pantoprazole 40 MG VIAL IVP SCH (22:39)
[2020-04-17] MEDS: Azithromycin 500 MG in 0.9 % Sodium Chloride 250 ML IVPB SCH (22:39)
[2020-04-18 02:26] LABS: Hematocrit 24.9 % (37.5-50.1); Hemoglobin 7.4 g/dL (12.9-16.9); Immature Granulocytes % 0.4 % (0-4); Lymphocytes # 0.2 K/mcL (0.6-4.6); Mean Corpuscular HGB Conc 29.7 g/dL (31.6-35.5); Mean Corpuscular Hemoglobin 24.6 pg (28.0-33.3); Mean Corpuscular Volume 82.7 fL (83.0-100.0); Mean Platelet Volume 8.9 fL (9.4-12.4); Monocytes # 0.3 K/mcL (0.0-1.3); Monocytes % 7.1 %; Neutrophils # 4.2 K/mcL (1.6-8.9); Platelet Count 115 K/mcL (140-400); Red Blood Count 3.01 M/mcL (4.19-5.50); Red Cell Distribution Width 18.4 % (11.5-14.5); Segmented Neutrophils % 87.5 %; White Blood Count 4.8 K/mcL (4.3-11.1)
[2020-04-18 02:42] LABS: Calcium 8.4 mg/dL (8.6-10.3)
[2020-04-18] MEDS: Ipratropium/Albuterol Neb 3 ML IH SCH ×4 (04:30→15:54)
[2020-04-18] MEDS: MethylPREDNISolone 40 MG/ML VIAL IVP SCH ×2 (05:16→07:34)
[2020-04-18] MEDS: Pantoprazole 40 MG VIAL IVP SCH (05:16)
[2020-04-18] MEDS ORDERED: 0.9 % Sodium Chloride 250 ML IVC ONE (07:35)
[2020-04-18] MEDS: Budesonide/Formoterol 160/4.5 1 PUFF INH IH SCH (07:53)
[2020-04-18] MEDS: amLODIPine 5 MG TABLET PO SCH (10:40)
[2020-04-18] MEDS: Metoprolol XL (24 HR) Succ 50 MG TAB.ER.24H PO SCH (10:40)
[2020-04-18 14:10] VITALS: BP 130/61
== END 2020-04-18 16:20 | disposition other institution (70) | DRG 190 ==
LOC: CDU → SUATTDRO 16:16 → 2ANU 18:41
PROVIDERS: ADMIT Internal Medicine; ATTEND Internal Medicine
PROC: ENDOEBX (2020-04-17 08:00)

== ENCOUNTER 2020-05-03 00:26 | Inpatient (IN) ==
[2020-05-03] MEDS ORDERED: Naloxone 0.4 MG/ML INJ IVP PRN (03:18)
[2020-05-03] MEDS ORDERED: *HR* Heparin 5,000 UNIT/ML VIAL IVP PRN ×2 (03:54)
[2020-05-03] MEDS ORDERED: *HR* Heparin 5,000 UNIT/ML VIAL IVP ONE (03:54)
[2020-05-03 04:34] LABS: Hematocrit 29.4 % (37.5-50.1); Hemoglobin 8.7 g/dL (12.9-16.9); Mean Corpuscular HGB Conc 29.6 g/dL (31.6-35.5); Mean Corpuscular Hemoglobin 24.8 pg (28.0-33.3); Mean Corpuscular Volume 83.8 fL (83.0-100.0); Mean Platelet Volume 8.7 fL (9.4-12.4); Platelet Count 125 K/mcL (140-400); Red Blood Count 3.51 M/mcL (4.19-5.50); Red Cell Distribution Width 21.5 % (11.5-14.5); White Blood Count 5.2 K/mcL (4.3-11.1)
[2020-05-03 04:38] LABS: Heparin anti-factor XA UFH 0.09 IU/mL (0.30-0.70); INR 1.4; Prothrombin Time 15.6 Seconds (9.4-12.1)
[2020-05-03] MEDS: Heparin 25,000UNIT/250ML 1/2NS 25,000 UNIT/250 ML IV.SOLN IVC SCH (04:48)
[2020-05-03 04:53] LABS: BUN/Creatinine Ratio 29 (6-26); Blood Urea Nitrogen 37 mg/dL (8-23); Calcium 9.1 mg/dL (8.6-10.3); Carbon Dioxide 30 mEq/L (23-29); Chloride 103 mEq/L (98-107); Glucose 117 mg/dL (70-105); Osmolality,Calculated 298 (280-300); Potassium 4.1 mEq/L (3.5-5.1); Sodium 139 mEq/L (136-145); eGFR For African Americans > 60 (> 60); eGFR For Non-African Americans 54 (> 60)
[2020-05-03 04:59] LABS: Troponin I 0.28 ng/mL (< 0.04)
[2020-05-03] MEDS ORDERED: Furosemide 40 MG/4 ML VIAL IVP ONE (06:41)
[2020-05-03] MEDS: Ipratropium/Albuterol Neb 3 ML IH SCH ×3 (09:23→21:55)
[2020-05-03] MEDS: Budesonide/Formoterol 160/4.5 1 PUFF INH IH SCH ×2 (09:33→21:54)
[2020-05-03] MEDS: predniSONE 20 MG TABLET PO SCH (10:18)
[2020-05-03] MEDS: Metoprolol XL (24 HR) Succ 50 MG TAB.ER.24H PO SCH (10:19)
[2020-05-03] MEDS: Furosemide 40 MG TABLET PO SCH (10:19)
[2020-05-03] MEDS: Isosorbide MONOnitrate (24 HR) 30 MG TAB.ER.24H PO SCH (17:13)
[2020-05-03] MEDS: Aspirin Enteric Coated 81 MG Tablet PO SCH (17:13)
[2020-05-03] MEDS ORDERED: hydrOXYzine pamoate 25 MG CAPSULE PO PRN (18:05)
[2020-05-03] MEDS: Mirtazapine 15 MG TABLET PO SCH (20:11)
[2020-05-04 02:21] LABS: Hematocrit 27.6 % (37.5-50.1); Hemoglobin 8.1 g/dL (12.9-16.9); Immature Granulocytes % 0.6 % (0-4); Lymphocytes # 0.2 K/mcL (0.6-4.6); Mean Corpuscular HGB Conc 29.3 g/dL (31.6-35.5); Mean Corpuscular Hemoglobin 24.5 pg (28.0-33.3); Mean Corpuscular Volume 83.6 fL (83.0-100.0); Mean Platelet Volume 9.4 fL (9.4-12.4); Monocytes # 0.3 K/mcL (0.0-1.3); Monocytes % 5.3 %; Neutrophils # 4.8 K/mcL (1.6-8.9); Platelet Count 119 K/mcL (140-400); Red Cell Distribution Width 21.5 % (11.5-14.5); Segmented Neutrophils % 91.1 %; White Blood Count 5.3 K/mcL (4.3-11.1)
[2020-05-04 02:36] LABS: Calcium 8.7 mg/dL (8.6-10.3)
[2020-05-04 02:56] LABS: Anisocytosis 1+ (Not Present); Microcytosis Present (Not Present); Platelet Estimate Slight Decrease (Normal)
[2020-05-04] MEDS: Ipratropium/Albuterol Neb 3 ML IH SCH ×4 (04:03→22:16)
[2020-05-04] MEDS: Heparin 25,000UNIT/250ML 1/2NS 25,000 UNIT/250 ML IV.SOLN IVC SCH (04:09)
[2020-05-04] MEDS: Aspirin Enteric Coated 81 MG Tablet PO SCH (09:20)
[2020-05-04] MEDS: predniSONE 20 MG TABLET PO SCH (09:21)
[2020-05-04] MEDS: Isosorbide MONOnitrate (24 HR) 30 MG TAB.ER.24H PO SCH (09:21)
[2020-05-04] MEDS: amLODIPine 5 MG TABLET PO SCH (09:21)
[2020-05-04] MEDS: Metoprolol XL (24 HR) Succ 50 MG TAB.ER.24H PO SCH (09:21)
[2020-05-04] MEDS ORDERED: 0.9 % Sodium Chloride 250 ML IVC SCH (10:45)
[2020-05-04] MEDS: Budesonide/Formoterol 160/4.5 1 PUFF INH IH SCH ×2 (11:02→22:17)
[2020-05-04 20:11] LABS: Adenovirus Not Detected (Not Detect); Bordetella Pertussis Not Detected (Not Detect); Chlamydophila pneumoniae Not Detected (Not Detect); Coronavirus 229E Not Detected (Not Detect); Coronavirus HKU1 Not Detected (Not Detect); Coronavirus NL63 Not Detected (Not Detect); Coronavirus OC43 Not Detected (Not Detect); Human Metapneumovirus Not Detected (Not Detect); Human Rhinovirus/Enterovirus Not Detected (Not Detect); Influenza A Subtype 2009 H1 Not Detected (Not Detect); Influenza B Not Detected (Not Detect); Mycoplasma pneumoniae Not Detected (Not Detect); Parainfluenza Virus 1 Not Detected (Not Detect); Parainfluenza Virus 2 Not Detected (Not Detect); Parainfluenza Virus 3 Not Detected (Not Detect); Parainfluenza Virus 4 Not Detected (Not Detect); Respiratory Syncytial Virus Not Detected (Not Detect); SARS-CoV-2 Not Detected (Not Detect)
[2020-05-04] MEDS: Mirtazapine 15 MG TABLET PO SCH (20:28)
[2020-05-05 02:47] LABS: Lymphocytes % 4.2 %
[2020-05-05 02:48] LABS: Hematocrit 31.4 % (37.5-50.1); Hemoglobin 9.2 g/dL (12.9-16.9); Immature Granulocytes % 0.4 % (0-4); Lymphocytes # 0.2 K/mcL (0.6-4.6); Mean Corpuscular HGB Conc 29.3 g/dL (31.6-35.5); Mean Corpuscular Hemoglobin 25.6 pg (28.0-33.3); Mean Corpuscular Volume 87.5 fL (83.0-100.0); Mean Platelet Volume 9.8 fL (9.4-12.4); Monocytes # 0.3 K/mcL (0.0-1.3); Monocytes % 5.2 %; Platelet Count 125 K/mcL (140-400); Red Blood Count 3.59 M/mcL (4.19-5.50); Red Cell Distribution Width 21.5 % (11.5-14.5); Segmented Neutrophils % 90.2 %; White Blood Count 5.5 K/mcL (4.3-11.1)
[2020-05-05 03:03] LABS: BUN/Creatinine Ratio 28 (6-26); Blood Urea Nitrogen 30 mg/dL (8-23); Calcium 8.6 mg/dL (8.6-10.3); Carbon Dioxide 27 mEq/L (23-29); Chloride 102 mEq/L (98-107); Glucose 105 mg/dL (70-105); Osmolality,Calculated 285 (280-300); Potassium 4.8 mEq/L (3.5-5.1); Sodium 134 mEq/L (136-145); eGFR For African Americans > 60 (> 60); eGFR For Non-African Americans > 60 (> 60)
[2020-05-05] MEDS: Ipratropium/Albuterol Neb 3 ML IH SCH ×4 (03:55→22:34)
[2020-05-05 04:25] LABS: Anisocytosis 1+ (Not Present); Poikilocytosis 1+ (Not Present)
[2020-05-05 04:26] LABS: Platelet Estimate Normal (Normal)
[2020-05-05] MEDS: Heparin 25,000UNIT/250ML 1/2NS 25,000 UNIT/250 ML IV.SOLN IVC SCH (07:43)
[2020-05-05] MEDS: Aspirin Enteric Coated 81 MG Tablet PO SCH (07:45)
[2020-05-05] MEDS: amLODIPine 5 MG TABLET PO SCH (07:45)
[2020-05-05] MEDS: Isosorbide MONOnitrate (24 HR) 30 MG TAB.ER.24H PO SCH (07:45)
[2020-05-05] MEDS: predniSONE 20 MG TABLET PO SCH (07:45)
[2020-05-05] MEDS: Furosemide 40 MG TABLET PO SCH (07:46)
[2020-05-05] MEDS: lisinopriL 5 MG TABLET PO SCH (07:46)
[2020-05-05] MEDS: Metoprolol XL (24 HR) Succ 50 MG TAB.ER.24H PO SCH (07:57)
[2020-05-05] MEDS: Budesonide/Formoterol 160/4.5 1 PUFF INH IH SCH ×2 (11:15→22:34)
[2020-05-05] MEDS ORDERED: Lidocaine -MPF 2% 2 ML VIAL ONE ×2 (13:27→13:58)
[2020-05-05] MEDS ORDERED: *HR* PHENYLEPHRINE 1,000 MCG/10 ML SYRINGE IVP ONE (13:58)
[2020-05-05] MEDS ORDERED: EPHEDrine 50 MG/ML VIAL ONE (14:13)
[2020-05-05] MEDS ORDERED: SODIUM CHLORIDE/NAHCO3/KCL/PEG 4,000 ML SOLN.RECON PO ONE (17:00)
[2020-05-05] MEDS: Mirtazapine 15 MG TABLET PO SCH (21:21)
[2020-05-06 02:40] LABS: Eosinophils % 0.6 %; Hematocrit 29.4 % (37.5-50.1); Hemoglobin 8.7 g/dL (12.9-16.9); Immature Granulocytes % 0.2 % (0-4); Lymphocytes # 0.3 K/mcL (0.6-4.6); Lymphocytes % 5.8 %; Mean Corpuscular HGB Conc 29.6 g/dL (31.6-35.5); Mean Corpuscular Hemoglobin 25.3 pg (28.0-33.3); Mean Corpuscular Volume 85.5 fL (83.0-100.0); Mean Platelet Volume 9.5 fL (9.4-12.4); Monocytes # 0.3 K/mcL (0.0-1.3); Monocytes % 5.8 %; Neutrophils # 4.4 K/mcL (1.6-8.9); Platelet Count 121 K/mcL (140-400); Red Blood Count 3.44 M/mcL (4.19-5.50); Segmented Neutrophils % 87.6 %
[2020-05-06 02:50] LABS: BUN/Creatinine Ratio 24 (6-26); Blood Urea Nitrogen 30 mg/dL (8-23); Calcium 8.7 mg/dL (8.6-10.3); Carbon Dioxide 29 mEq/L (23-29); Chloride 102 mEq/L (98-107); Glucose 93 mg/dL (70-105); Osmolality,Calculated 290 (280-300); Potassium 4.2 mEq/L (3.5-5.1); Sodium 137 mEq/L (136-145); eGFR For African Americans > 60 (> 60); eGFR For Non-African Americans 55 (> 60)
[2020-05-06] MEDS: Ipratropium/Albuterol Neb 3 ML IH SCH ×4 (03:45→22:48)
[2020-05-06] MEDS: Heparin 25,000UNIT/250ML 1/2NS 25,000 UNIT/250 ML IV.SOLN IVC SCH (10:49)
[2020-05-06] MEDS: Budesonide/Formoterol 160/4.5 1 PUFF INH IH SCH ×2 (10:53→22:48)
[2020-05-06] MEDS: Aspirin Enteric Coated 81 MG Tablet PO SCH (11:08)
[2020-05-06] MEDS: Furosemide 40 MG TABLET PO SCH (11:08)
[2020-05-06] MEDS: Metoprolol XL (24 HR) Succ 50 MG TAB.ER.24H PO SCH (11:08)
[2020-05-06] MEDS: predniSONE 20 MG TABLET PO SCH (11:08)
[2020-05-06] MEDS: lisinopriL 5 MG TABLET PO SCH (11:09)
[2020-05-06] MEDS: amLODIPine 5 MG TABLET PO SCH (11:09)
[2020-05-06] MEDS: Isosorbide MONOnitrate (24 HR) 30 MG TAB.ER.24H PO SCH (11:09)
[2020-05-06] MEDS ORDERED: Heparin 1,000 UNITS/500 mL 500 ML ONE (14:00)
[2020-05-06] MEDS ORDERED: ISOVUE-370 200 ML INFUS..BTL ONE ×2 (14:00→15:44)
[2020-05-06] MEDS ORDERED: 0.9 % Sodium Chloride 2,000 ML ONE (14:00)
[2020-05-06] MEDS ORDERED: *HR* Heparin 10,000 UNIT/10 ML VIAL ONE (14:00)
[2020-05-06] MEDS ORDERED: Nitroglycerin 1,000 MCG/10 ML VIAL IV ONE (14:01)
[2020-05-06] MEDS ORDERED: *HR* Midazolam HCl 2 MG/2 ML VIAL ONE (14:12)
[2020-05-06] MEDS ORDERED: *HR* FentaNYL (PF) 100 MCG/2 ML VIAL ONE (14:12)
[2020-05-06] MEDS ORDERED: Tirofiban 12.5 MG/250ML 12.5 MG/250 ML BAG ONE (15:40)
[2020-05-06] MEDS ORDERED: Tirofiban 12.5 MG/250ML 12.5 MG/250 ML BAG IVC SCH (16:00)
[2020-05-06] MEDS: Mirtazapine 15 MG TABLET PO SCH (22:12)
[2020-05-07] MEDS ORDERED: Heparin 25,000UNIT/250ML 1/2NS 25,000 UNIT/250 ML IV.SOLN IVC SCH (02:00)
[2020-05-07 02:20] LABS: Hemoglobin 9.5 g/dL (12.9-16.9); Mean Corpuscular HGB Conc 28.8 g/dL (31.6-35.5); Mean Corpuscular Hemoglobin 24.2 pg (28.0-33.3); Mean Corpuscular Volume 84.2 fL (83.0-100.0); Mean Platelet Volume 9.3 fL (9.4-12.4); Platelet Count 154 K/mcL (140-400); Red Blood Count 3.92 M/mcL (4.19-5.50); Red Cell Distribution Width 22.2 % (11.5-14.5); White Blood Count 5.9 K/mcL (4.3-11.1)
[2020-05-07 02:32] LABS: Calcium 8.5 mg/dL (8.6-10.3); Potassium 4.2 mEq/L (3.5-5.1)
[2020-05-07] MEDS: Ipratropium/Albuterol Neb 3 ML IH SCH ×3 (04:41→16:29)
[2020-05-07] MEDS: amLODIPine 5 MG TABLET PO SCH (08:29)
[2020-05-07] MEDS: Isosorbide MONOnitrate (24 HR) 30 MG TAB.ER.24H PO SCH (08:29)
[2020-05-07] MEDS: Aspirin Enteric Coated 81 MG Tablet PO SCH (08:29)
[2020-05-07] MEDS: lisinopriL 5 MG TABLET PO SCH (08:29)
[2020-05-07] MEDS: Metoprolol XL (24 HR) Succ 50 MG TAB.ER.24H PO SCH (08:30)
[2020-05-07] MEDS: Furosemide 40 MG TABLET PO SCH (08:30)
[2020-05-07] MEDS: predniSONE 20 MG TABLET PO SCH (08:31)
[2020-05-07] MEDS: Budesonide/Formoterol 160/4.5 1 PUFF INH IH SCH (10:29)
[2020-05-07 15:19] VITALS: BP 106/83
[2020-05-07] MEDS ORDERED: *HR* Rivaroxaban 15 MG TABLET PO SCH (17:00)
== END 2020-05-07 17:20 | disposition home health service (06) | DRG 248 ==
LOC: 3BNU → 2NNU 05-06 18:44
PROVIDERS: ADMIT Internal Medicine; ATTEND Internal Medicine

== ENCOUNTER 2020-05-19 15:29 | Inpatient (IN) ==
[2020-05-19] MEDS ORDERED: Naloxone 0.4 MG/ML INJ IVP PRN (18:19)
[2020-05-19 20:20] LABS: Troponin I 0.06 ng/mL (< 0.04)
[2020-05-20 04:59] LABS: Hemoglobin 9.4 g/dL (12.9-16.9); Immature Granulocytes % 0.5 % (0-4); Lymphocytes # 0.1 K/mcL (0.6-4.6); Lymphocytes % 3.1 %; Mean Corpuscular HGB Conc 29.4 g/dL (31.6-35.5); Mean Corpuscular Volume 85.1 fL (83.0-100.0); Mean Platelet Volume 8.8 fL (9.4-12.4); Monocytes # 0.2 K/mcL (0.0-1.3); Monocytes % 4.5 %; Neutrophils # 3.9 K/mcL (1.6-8.9); Platelet Count 104 K/mcL (140-400); Red Blood Count 3.76 M/mcL (4.19-5.50); Red Cell Distribution Width 21.2 % (11.5-14.5); Segmented Neutrophils % 91.9 %; White Blood Count 4.2 K/mcL (4.3-11.1)
[2020-05-20 05:11] LABS: BUN/Creatinine Ratio 25 (6-26); Blood Urea Nitrogen 29 mg/dL (8-23); Calcium 8.6 mg/dL (8.6-10.3); Carbon Dioxide 27 mEq/L (23-29); Chloride 102 mEq/L (98-107); Glucose 124 mg/dL (70-105); Osmolality,Calculated 289 (280-300); Potassium 4.1 mEq/L (3.5-5.1); Sodium 136 mEq/L (136-145); eGFR For African Americans > 60 (> 60); eGFR For Non-African Americans > 60 (> 60)
[2020-05-20 07:14] LABS: Anisocytosis 1+ (Not Present); Microcytosis Present (Not Present); Platelet Estimate Slight Decrease (Normal)
[2020-05-20] MEDS ORDERED: Sennosides/Docusate Sodium TABLET PO PRN (08:13)
[2020-05-20] MEDS ORDERED: hydrOXYzine pamoate 25 MG CAPSULE PO PRN (08:13)
[2020-05-20] MEDS: Aspirin Enteric Coated 81 MG Tablet PO SCH (10:27)
[2020-05-20] MEDS: Furosemide 40 MG/4 ML VIAL IVP SCH (10:27)
[2020-05-20] MEDS: lisinopriL 5 MG TABLET PO SCH (10:28)
[2020-05-20] MEDS: levoFLOXacin 750 MG/150 ML 750 MG/150 ML BAG IVPB SCH (10:30)
[2020-05-20] MEDS: Isosorbide MONOnitrate (24 HR) 30 MG TAB.ER.24H PO SCH (10:30)
[2020-05-20] MEDS: Metoprolol XL (24 HR) Succ 50 MG TAB.ER.24H PO SCH (10:31)
[2020-05-20] MEDS: Budesonide/Formoterol 160/4.5 1 PUFF INH IH SCH ×2 (10:31→19:45)
[2020-05-20] MEDS: Tiotropium 18 MCG inhalation IH SCH (10:34)
[2020-05-20] MEDS: predniSONE 10 MG TABLET PO SCH (16:47)
[2020-05-20] MEDS: Mirtazapine 15 MG TABLET PO SCH (20:25)
[2020-05-21 06:20] LABS: Basophils % 0.2 %; Eosinophils % 0.2 %; Hematocrit 33.8 % (37.5-50.1); Hemoglobin 9.9 g/dL (12.9-16.9); Immature Granulocytes % 0.8 % (0-4); Lymphocytes # 0.3 K/mcL (0.6-4.6); Lymphocytes % 4.1 %; Mean Corpuscular HGB Conc 29.3 g/dL (31.6-35.5); Mean Corpuscular Hemoglobin 24.8 pg (28.0-33.3); Mean Corpuscular Volume 84.7 fL (83.0-100.0); Mean Platelet Volume 8.9 fL (9.4-12.4); Monocytes # 0.2 K/mcL (0.0-1.3); Monocytes % 3.4 %; Neutrophils # 5.6 K/mcL (1.6-8.9); Platelet Count 131 K/mcL (140-400); Red Blood Count 3.99 M/mcL (4.19-5.50); Red Cell Distribution Width 21.1 % (11.5-14.5); Segmented Neutrophils % 91.3 %; White Blood Count 6.2 K/mcL (4.3-11.1)
[2020-05-21 06:37] LABS: BUN/Creatinine Ratio 24 (6-26); Blood Urea Nitrogen 31 mg/dL (8-23); Calcium 8.9 mg/dL (8.6-10.3); Carbon Dioxide 30 mEq/L (23-29); Chloride 100 mEq/L (98-107); Glucose 96 mg/dL (70-105); Osmolality,Calculated 288 (280-300); Potassium 4.5 mEq/L (3.5-5.1); Sodium 136 mEq/L (136-145); eGFR For African Americans > 60 (> 60); eGFR For Non-African Americans 55 (> 60)
[2020-05-21] MEDS: *HR* Rivaroxaban 10 MG TABLET PO SCH (07:31)
[2020-05-21] MEDS: Aspirin Enteric Coated 81 MG Tablet PO SCH (07:32)
[2020-05-21] MEDS: Isosorbide MONOnitrate (24 HR) 30 MG TAB.ER.24H PO SCH (07:32)
[2020-05-21] MEDS: predniSONE 10 MG TABLET PO SCH ×2 (07:32→16:56)
[2020-05-21] MEDS: lisinopriL 5 MG TABLET PO SCH (07:33)
[2020-05-21] MEDS: Furosemide 40 MG/4 ML VIAL IVP SCH (07:34)
[2020-05-21] MEDS: Metoprolol XL (24 HR) Succ 50 MG TAB.ER.24H PO SCH (07:34)
[2020-05-21] MEDS: levoFLOXacin 750 MG/150 ML 750 MG/150 ML BAG IVPB SCH (07:39)
[2020-05-21] MEDS: amLODIPine 5 MG TABLET PO SCH (08:47)
[2020-05-21] MEDS: Budesonide/Formoterol 160/4.5 1 PUFF INH IH SCH ×2 (10:12→20:35)
[2020-05-21] MEDS: Tiotropium 18 MCG inhalation IH SCH (10:12)
[2020-05-21] MEDS: Ipratropium/Albuterol Neb 3 ML IH PRN (20:23)
[2020-05-21] MEDS: Mirtazapine 15 MG TABLET PO SCH (21:17)
[2020-05-22] MEDS: Ipratropium/Albuterol Neb 3 ML IH PRN ×2 (03:27→08:29)
[2020-05-22 06:17] LABS: Hematocrit 35.3 % (37.5-50.1); Hemoglobin 10.3 g/dL (12.9-16.9); Mean Corpuscular HGB Conc 29.2 g/dL (31.6-35.5); Mean Corpuscular Hemoglobin 24.8 pg (28.0-33.3); Mean Corpuscular Volume 84.9 fL (83.0-100.0); Mean Platelet Volume 8.8 fL (9.4-12.4); Platelet Count 136 K/mcL (140-400); Red Blood Count 4.16 M/mcL (4.19-5.50); Red Cell Distribution Width 21.1 % (11.5-14.5); White Blood Count 5.6 K/mcL (4.3-11.1)
[2020-05-22 06:57] LABS: BUN/Creatinine Ratio 26 (6-26); Blood Urea Nitrogen 33 mg/dL (8-23); Carbon Dioxide 26 mEq/L (23-29); Chloride 100 mEq/L (98-107); Glucose 102 mg/dL (70-105); Osmolality,Calculated 287 (280-300); Potassium 4.4 mEq/L (3.5-5.1); Sodium 135 mEq/L (136-145); eGFR For African Americans > 60 (> 60); eGFR For Non-African Americans 54 (> 60)
[2020-05-22 07:17] VITALS: BP 152/81
[2020-05-22] MEDS: predniSONE 10 MG TABLET PO SCH (08:08)
[2020-05-22] MEDS: *HR* Rivaroxaban 10 MG TABLET PO SCH (08:08)
[2020-05-22] MEDS: Aspirin Enteric Coated 81 MG Tablet PO SCH (08:08)
[2020-05-22] MEDS: Isosorbide MONOnitrate (24 HR) 30 MG TAB.ER.24H PO SCH (08:09)
[2020-05-22] MEDS: Furosemide 40 MG/4 ML VIAL IVP SCH (08:09)
[2020-05-22] MEDS: levoFLOXacin 750 MG/150 ML 750 MG/150 ML BAG IVPB SCH (08:10)
[2020-05-22] MEDS: lisinopriL 5 MG TABLET PO SCH (08:11)
[2020-05-22] MEDS: Metoprolol XL (24 HR) Succ 50 MG TAB.ER.24H PO SCH (08:11)
[2020-05-22] MEDS: amLODIPine 5 MG TABLET PO SCH (08:12)
[2020-05-22] MEDS: Budesonide/Formoterol 160/4.5 1 PUFF INH IH SCH (08:35)
[2020-05-22] MEDS: Tiotropium 18 MCG inhalation IH SCH (08:35)
== END 2020-05-22 12:04 | disposition home or self-care (01) | DRG 291 ==
LOC: 3BNU
PROVIDERS: ADMIT Family Medicine; ATTEND Family Medicine

== ENCOUNTER 2021-08-31 15:23 | Inpatient (IN) ==
[2021-08-31] MEDS ORDERED: Naloxone 0.4 MG/ML INJ IVP PRN (19:34)
[2021-08-31] MEDS ORDERED: Melatonin 3 MG TABLET PO PRN (19:40)
[2021-08-31] MEDS ORDERED: Ondansetron ODT 4 MG TAB.RAPDIS SL PRN (19:40)
[2021-08-31 20:42] LABS: Basophils % 0.3 %; Eosinophils % 0.2 %; Hematocrit 44.1 % (37.5-50.1); Hemoglobin 14.2 g/dL (12.9-16.9); Immature Granulocytes % 0.4 % (0-4); Lymphocytes # 0.4 K/mcL (0.6-4.6); Lymphocytes % 3.6 %; Mean Corpuscular HGB Conc 32.2 g/dL (31.6-35.5); Mean Corpuscular Hemoglobin 30.5 pg (28.0-33.3); Mean Corpuscular Volume 94.8 fL (83.0-100.0); Mean Platelet Volume 9.2 fL (9.4-12.4); Monocytes # 0.8 K/mcL (0.0-1.3); Monocytes % 6.8 %; Neutrophils # 10.5 K/mcL (1.6-8.9); Platelet Count 149 K/mcL (140-400); Red Blood Count 4.65 M/mcL (4.19-5.50); Red Cell Distribution Width 13.6 % (11.5-14.5); Segmented Neutrophils % 88.7 %; White Blood Count 11.8 K/mcL (4.3-11.1)
[2021-08-31 20:53] LABS: INR 1.6; Prothrombin Time 18.3 Seconds (9.4-12.1)
[2021-08-31 20:55] LABS: Activated Partial Thrombo Time 41.5 Seconds (26.0-36.0)
[2021-08-31 21:02] LABS: Albumin 4.1 g/dL (3.5-5.7); Albumin/Globulin Ratio 1.6 (1.1-2.2); Bilirubin,Direct 0.2 mg/dL (0.0-0.2); Bilirubin,Indirect 0.4 mg/dL (0.0-1.0); Bilirubin,Total 0.6 mg/dL (0.3-1.0); Calcium 9.3 mg/dL (8.6-10.3); Globulin 2.6 g/dL (2.4-3.5); Magnesium 1.9 mg/dL (1.6-2.6); Phosphorous 3.6 mg/dL (2.7-4.5); Total Protein 6.7 g/dL (6.4-8.9)
[2021-08-31] MEDS: Ringers Solution, Lactated 1,000 ML IVC SCH (23:04)
[2021-09-01] MEDS ORDERED: Ipratropium/Albuterol Neb 3 ML IH PRN (00:02)
[2021-09-01 01:09] LABS: Basophils % 0.2 %; Eosinophils % 0.2 %; Hematocrit 37.7 % (37.5-50.1); Immature Granulocytes % 0.5 % (0-4); Lymphocytes # 0.5 K/mcL (0.6-4.6); Lymphocytes % 5.3 %; Mean Corpuscular HGB Conc 32.1 g/dL (31.6-35.5); Mean Corpuscular Hemoglobin 30.3 pg (28.0-33.3); Mean Corpuscular Volume 94.5 fL (83.0-100.0); Mean Platelet Volume 9.4 fL (9.4-12.4); Monocytes # 0.7 K/mcL (0.0-1.3); Monocytes % 7.8 %; Neutrophils # 7.3 K/mcL (1.6-8.9); Platelet Count 108 K/mcL (140-400); Red Blood Count 3.99 M/mcL (4.19-5.50); Red Cell Distribution Width 13.5 % (11.5-14.5); White Blood Count 8.5 K/mcL (4.3-11.1)
[2021-09-01 01:11] LABS: Hemoglobin 12.1 g/dL (12.9-16.9)
[2021-09-01 01:32] LABS: INR 1.9; Prothrombin Time 20.6 Seconds (9.4-12.1)
[2021-09-01 02:17] LABS: Albumin 3.4 g/dL (3.5-5.7); Albumin/Globulin Ratio 1.5 (1.1-2.2); Bilirubin,Direct 0.1 mg/dL (0.0-0.2); Bilirubin,Indirect 0.4 mg/dL (0.0-1.0); Bilirubin,Total 0.5 mg/dL (0.3-1.0); Calcium 8.5 mg/dL (8.6-10.3); Chol/HDL Ratio 2.3 (0-4.9); Globulin 2.2 g/dL (2.4-3.5); Magnesium 1.9 mg/dL (1.6-2.6); Potassium 5.3 mEq/L (3.5-5.1); Thyroid Stimulating Hormone 1.949 mcIU/mL (0.340-5.600); Total Protein 5.6 g/dL (6.4-8.9)
[2021-09-01] MEDS: Ringers Solution, Lactated 1,000 ML IVC SCH (02:39)
[2021-09-01 04:51] LABS: Bacteria,Urine Few per hpf (None-Few); Bilirubin,Urine Negative (Negative); Blood,Urine Negative (Negative); Clarity,Urine Clear (Clear); Color,Urine Yellow (Yellow); Glucose,Urine (UA) Normal (Normal); Hyaline Casts,Urine Few per lpf (None Seen); Ketones,Urine Negative (Negative); Leukocyte Esterase,Urine Negative (Negative); Mucus,Urine Few per lpf (None-Few); Nitrite,Urine Negative (Negative); PH,Urine 5.5 pH Units (5.0-8.0); Protein,Urine 30 mg/dL (Neg-Trace); RBC,Urine 0-3 per hpf (0-3); Specific Gravity,Urine 1.021 (1.010-1.025); Squamous Epithelial Cell,Urine Few per hpf (None-Few); Urobilinogen,Urine Normal (Normal); WBC,Urine 0-3 per hpf (0-3)
[2021-09-01] MEDS: Doxycycline 100 MG in 0.9 % Sodium Chloride Mini Bag 100 ML IVPB SCH ×2 (05:27→17:04)
[2021-09-01] MEDS: *HR* Rivaroxaban 10 MG TABLET PO SCH (16:59)
[2021-09-02] MEDS: Doxycycline 100 MG in 0.9 % Sodium Chloride Mini Bag 100 ML IVPB SCH ×2 (06:12→17:07)
[2021-09-02] MEDS: Ipratropium/Albuterol Neb 3 ML IH PRN ×2 (11:51→20:37)
[2021-09-02] MEDS ORDERED: Lidocaine -MPF 2% 5 ML VIAL ONE (12:38)
[2021-09-02] MEDS ORDERED: Ondansetron 4 MG/2 ML VIAL IVP PRN (12:59)
[2021-09-02] MEDS ORDERED: *HR* FentaNYL (PF) 100 MCG/2 ML VIAL IVP PRN (12:59)
[2021-09-02] MEDS ORDERED: Ondansetron 4 MG/2 ML VIAL ONE (13:07)
[2021-09-02] MEDS ORDERED: *HR* FentaNYL (PF) 100 MCG/2 ML VIAL ONE (13:07)
[2021-09-02] MEDS ORDERED: *HR* Rocuronium Bromide 50 MG/5 ML VIAL ONE (13:07)
[2021-09-02] MEDS ORDERED: Lacri-Lube 3.5 GM TUBE ONE (14:32)
[2021-09-02] MEDS: *HR* Rivaroxaban 10 MG TABLET PO SCH (17:08)
[2021-09-02 18:58] LABS: Alanine Aminotransferase 11 Units/L (7-52); Albumin 3.4 g/dL (3.5-5.7); Albumin/Globulin Ratio 1.4 (1.1-2.2); Alkaline Phosphatase 55 Units/L (34-104); Aspartate Amino Transferase 31 Units/L (13-39); BUN/Creatinine Ratio 29 (6-26); Bilirubin,Total 0.6 mg/dL (0.3-1.0); Blood Urea Nitrogen 35 mg/dL (8-23); Calcium 8.9 mg/dL (8.6-10.3); Carbon Dioxide 25 mEq/L (23-29); Chloride 106 mEq/L (98-107); Globulin 2.4 g/dL (2.4-3.5); Glucose 99 mg/dL (70-105); Osmolality,Calculated 292 (280-300); Sodium 137 mEq/L (136-145); Total Protein 5.8 g/dL (6.4-8.9); eGFR For African Americans > 60 (> 60); eGFR For Non-African Americans 58 (> 60)
[2021-09-02] MEDS: Budesonide/Formoterol 160/4.5 1 PUFF INH IH SCH (20:36)
[2021-09-02 21:01] LABS: Red Cell Distribution Width 13.4 % (11.5-14.5)
[2021-09-02 21:03] LABS: Basophils % 0.2 %; Hematocrit 31.4 % (37.5-50.1); Immature Granulocytes % 0.9 % (0-4); Immature Platelets 2.3 % (1.1-6.1); Lymphocytes # 0.1 K/mcL (0.6-4.6); Lymphocytes % 3.1 %; Mean Corpuscular HGB Conc 31.8 g/dL (31.6-35.5); Mean Corpuscular Hemoglobin 30.1 pg (28.0-33.3); Mean Corpuscular Volume 94.6 fL (83.0-100.0); Mean Platelet Volume 9.1 fL (9.4-12.4); Monocytes # 0.1 K/mcL (0.0-1.3); Neutrophils # 4.3 K/mcL (1.6-8.9); Red Blood Count 3.32 M/mcL (4.19-5.50); Segmented Neutrophils % 93.8 %; White Blood Count 4.6 K/mcL (4.3-11.1)
[2021-09-02 21:38] LABS: Platelet Count 84 K/mcL (140-400)
[2021-09-02 21:39] LABS: Platelet Estimate Decreased (Normal)
[2021-09-02 21:40] LABS: Microcytosis Present (Not Present)
[2021-09-03] MEDS: Doxycycline 100 MG in 0.9 % Sodium Chloride Mini Bag 100 ML IVPB SCH (05:19)
[2021-09-03] MEDS: Ipratropium/Albuterol Neb 3 ML IH PRN (07:38)
[2021-09-03] MEDS: Budesonide/Formoterol 160/4.5 1 PUFF INH IH SCH (07:38)
[2021-09-03 08:55] LABS: Hematocrit 34.2 % (37.5-50.1); Hemoglobin 10.9 g/dL (12.9-16.9); Mean Corpuscular HGB Conc 31.9 g/dL (31.6-35.5); Mean Corpuscular Hemoglobin 30.2 pg (28.0-33.3); Mean Corpuscular Volume 94.7 fL (83.0-100.0); Mean Platelet Volume 9.4 fL (9.4-12.4); Platelet Count 100 K/mcL (140-400); Red Blood Count 3.61 M/mcL (4.19-5.50); Red Cell Distribution Width 13.2 % (11.5-14.5); White Blood Count 4.6 K/mcL (4.3-11.1)
[2021-09-03 09:18] LABS: Alanine Aminotransferase 17 Units/L (7-52); Albumin 3.7 g/dL (3.5-5.7); Albumin/Globulin Ratio 1.4 (1.1-2.2); Alkaline Phosphatase 63 Units/L (34-104); Aspartate Amino Transferase 36 Units/L (13-39); BUN/Creatinine Ratio 31 (6-26); Bilirubin,Total 0.6 mg/dL (0.3-1.0); Blood Urea Nitrogen 41 mg/dL (8-23); Calcium 9.5 mg/dL (8.6-10.3); Carbon Dioxide 27 mEq/L (23-29); Chloride 104 mEq/L (98-107); Globulin 2.7 g/dL (2.4-3.5); Glucose 141 mg/dL (70-105); Osmolality,Calculated 298 (280-300); Potassium 4.3 mEq/L (3.5-5.1); Sodium 138 mEq/L (136-145); Total Protein 6.4 g/dL (6.4-8.9); eGFR For African Americans > 60 (> 60); eGFR For Non-African Americans 52 (> 60)
[2021-09-03 09:37] LABS: Lipase 38 Units/L (11-82)
[2021-09-03 10:17] VITALS: BP 104/61; PULSE 70; TEMP 98.7; O2SAT 97
== END 2021-09-03 16:21 | disposition home health service (06) | DRG 439 ==
LOC: 3ANU → SUATTDRO 18:55 → OBSVTOIN 18:55
PROVIDERS: ADMIT Internal Medicine; ATTEND Internal Medicine
PROC: ENDOEUS (2021-09-02 13:00)